=== PATIENT | female | born 1965 | race Caucasian/White ===

== ENCOUNTER → 2017-01-19 16:05 | Outpatient (CLI) | payer MEDICARE ==
[~2017-01-19 16:05] MED LIST: BUTALB-APAP-CA1 EACH; CELEXA10 MG PO; CRESTOR10 MG PO; DEMEROL50 MG; DEPAKOTE250 MG PO; DESYREL50 MG PO; DILANTIN100 MG PO; EFFEXOR75 MG PO; GEMFIBROZIL600 MG PO; HYDROCODONE-APA1 TAB PO; NICODERM C1 PATCH .3 TD; NORCO 7.5/325 T1 TA1 PO; PHENERGAN25 M1 PO; SYNTHROID50 MCG PO; SYNTHROID75 MCG PO; ZOCOR40 MG PO; ZYPREXA10 MG PO; ZYPREXA15 MG PO
== END | disposition home or self-care (01) ==
LOC: D.MAMMO 15:30
DX: Z12.31 Encounter for screening mammogram for malignant neoplasm of breast (principal)